=== PATIENT | female | born 1960 ===

== ENCOUNTER 2018-03-16 07:27 | Day surgery (SDC) | payer OTHER ==
[2018-03-15 11:21] VITALS: BMI 28.8
[2018-03-16] MEDS ORDERED: Lactated Ringer's 500 ML IV SCH (09:30)
[2018-03-16] MEDS ORDERED: Propofol 10 mg/ml Inj (20 ML) ONE (09:40)
[2018-03-16] MEDS ORDERED: Lidocaine Hydrochloride 5 ML INJ ONE (09:40)
[2018-03-16 10:17] VITALS: TEMP 98; O2SAT 100
[2018-03-16 11:08] VITALS: BP 112/56; PULSE 66; RESP 13
== END 2018-03-16 11:05 | disposition home or self-care (01) ==
LOC: C.ENDO 07:27
PROVIDERS: ATTEND Internal Medicine Gastroenterology
DX: Z12.11 Encounter for screening for malignant neoplasm of colon (principal); K57.90 Diverticulosis of intestine, part unspecified, without perforation or abscess without bleeding; K64.8 Other hemorrhoids
CPT/HCPCS: 45378; J2704; J7120